=== PATIENT | female | born 1965 | race Caucasian/White ===

== ENCOUNTER 2018-03-29 23:24 | Emergency (ER) | payer OTHER ==
[2018-03-29 23:43] VITALS: BP 126/74; TEMP 98; BMI 17.5
[2018-03-30] MEDS ORDERED: DEMEROL 50 MG/ML VIAL IM STA (00:01)
[2018-03-30] MEDS ORDERED: PHENERGAN 25 MG/ML VIAL 12.5 MG in SODIUM CHLORIDE 50 ML IV STA (00:01)
[2018-03-30] MEDS ORDERED: LEVAQUIN PO STA (00:05)
--- NOTE | 2018-03-30 00:05 | ED.PDOC ---
General ED Provider: Dr. HERIBERTO LAMAR Chief Complaint: Bite Stated Complaint: patient states she was bit by her and her mothers dog when they were fighting for food. She has sutained puncture wounds to the theresa. Also complains of left 5th metatarsal area. States that the dogs have had their shots. Time Seen by Physician: 23:45 Mode of Arrival: Walk-In Information Source: Patient Nursing and Triage Documentation Reviewed and Agree: Yes Reviewed sepsis parameters & appropriate labs ordered?: No System Inflammatory Response Syndrome: Not Applicable Sepsis Protocol: For patient's 13 years and over: Temp is 96.8 and below OR 101 and greater Pulse >90 BPM Resp >20/minute Acutely Altered Mental Status Are patient's symptoms suggestive of a new infection, such as: -Pneumonia -Skin, Soft Tissue -Endocarditis -UTI -Bone, Joint Infection -Implantable Device -Acute Abdominal Infection -Wound Infection -Meningitis -Blood Stream Catheter Infection -Unknown System Inflammatory Response Syndrome: Not Applicable Skin Complaint Exam - Laceration/Abrasion/Hand Complaint/Exam Location of Injury: Left, Hand (and theresa ) Mechanism of Injury: Sharp trauma (with dog teeth ) Onset/Duration: 2 hours ago Symptoms Are: Still present Initial Severity: Severe Current Severity: Moderate Aggravating: Movement (of hand) Associated Signs and Symptoms: Denies: Fever, Chills, Erythema, Numbness, Tingling Related History: Reports: Right hand dominant Hand Picture: 1 - area of pain 2 - multiple puncture wounds from dog bites. Differential Diagnoses: Puncture Wound Review of Systems - Review Of Systems Constitutional: Reports: No symptoms Musculoskeletal: Reports: Joint pain Skin: Reports: Lesions Neurological: Reports: Anxiety All Other Systems: Reviewed and Negative Past Medical History - Past Medical History Previously Healthy: Yes Endocrine: Reports: None Cardiovascular: Reports: None Respiratory: Reports: COPD Hematological: Reports: None Gastrointestinal: Reports: GERD Genitourinary: Reports: None Neuro/Psych: Reports: None Musculoskeletal: Reports: Arthritis Cancer: Reports: None Last Menstrual Period: UNKNOWN - Surgical History General Surgical History: Reports: Back Surgery (Two spinal surgeries, Right ankle surgery), Hernia Repair (Left ) - Family History Family History: Reports: Unknown - Social History Smoking Status: Current every day smoker, Heavy tobacco smoker Hx Substance Use: No Alcohol Screening: None - Immunizations Tetanus Shot up to Date: Yes Physical Exam - Physical Exam Appearance: Ill-appearing, Thin Ill-appearing: Mild Pain Distress: Severe Neck: Supple Respiratory: Airway patent Cardiovascular: RRR, Pulses normal, No rub, No murmur Musculoskeletal: Limited ROM Skin: Warm, Dry Neurological: Alert, Oriented Psychiatric: Anxious Interpretation - Radiology Interpretation Radiology Interpretation By: Radiologist Radiology Results: Negative Exam Interpreted: Other (hand x ray ) Critical Care Note - Critical Care Note Total Time (mins): 0 Course - Course Orders, Labs, Meds: Orders Category Date Time Status Diphth,Pertuss(Acell),Tet Vac [Boostrix] MEDS 03/30/18 00:22 Discontinued 0.5 ml IM .ONCE ONE Levofloxacin [Levaquin] MEDS 03/30/18 00:05 Discontinued 500 mg PO ONCE STA Meperidine HCl/Pf [Demerol 50 mg/ml Vial] MEDS 03/30/18 00:01 Discontinued 25 mg IM ONCE STA Promethazine HCl [Phenergan 25 mg/ml Vial] MEDS 03/30/18 00:07 Discontinued 25 mg IM ONCE STA HAND, LEFT 3 VIEWS Stat RADS 03/30/18 00:01 Completed Medications Discontinued Medications Generic Name Dose Route Start Last Admin Trade Name Freq PRN Reason Stop Dose Admin Diphtheria/Pertussis/Tetanus Vacc 0.5 ml 03/30/18 00:22 03/30/18 00:32 Boostrix IM 03/30/18 00:23 0.5 ml .ONCE ONE Administration Levofloxacin 500 mg 03/30/18 00:05 03/30/18 00:40 Levaquin PO 03/30/18 00:06 500 mg ONCE STA Administration Meperidine HCl 25 mg 03/30/18 00:01 03/30/18 00:41 Demerol 50 Mg/Ml Vial IM 03/30/18 00:02 25 mg ONCE STA Administration Promethazine HCl 25 mg 03/30/18 00:07 03/30/18 00:37 Phenergan 25 Mg/Ml Vial IM 03/30/18 00:08 12.5 mg ONCE STA Administration Vital Signs: Temp Pulse Resp BP Pulse Ox 03/29/18 23:25 98 F 76 18 126/74 96 Departure - Departure Time of Disposition: 01:00 Disposition: HOME SELF-CARE Discharge Problem: Dog bite of forearm without complication Qualifiers: Encounter type: initial encounter Laterality: left Qualified Code(s): S51.852A - Open bite of left forearm, initial encounter Instructions: Diphtheria/Acellular Pertussis/Tetanus Vaccine (By injection), Animal Bite (ED) Condition: Stable Pt referred to PMD for follow-up: Yes IPMP verified?: Yes Additional Instructions: Take medications as prescribed Follow up with PCP in 3 days Keep wounds clean dry and dressed. Prescriptions: Ibuprofen [Motrin] 600 mg PO Q6H PRN #20 tablet PRN Reason: Analgesia Levofloxacin [Levaquin] 500 mg PO ONCE #7 tablet Allergies/Adverse Reactions: Allergies codeine Allergy (Unverified 04/19/16 16:14) hydrocodone Allergy (Unverified 04/19/16 16:14) morphine Adverse Reaction (Verified 03/29/18 23:30) Swelling/HIVES Penicillins Adverse Reaction (Verified 04/14/15 13:34) Sulfa (Sulfonamide Antibiotics) Adverse Reaction (Verified 04/14/15 13:34) steroids Adverse Reaction (Uncoded 04/14/15 19:08) pt states allergic to ANY STEROID!!!! Home Medications: Ambulatory Orders Ibuprofen [Motrin] 600 mg PO Q6H PRN #20 tablet 03/30/18 Levofloxacin [Levaquin] 500 mg PO ONCE #7 tablet 03/30/18 Disposition Discussed With: Patient, Family
[2018-03-30] MEDS ORDERED: PHENERGAN 25 MG/ML VIAL IM STA (00:07)
[2018-03-30] MEDS ORDERED: BOOSTRIX IM ONE (00:22)
--- NOTE | 2018-03-30 00:36 | DI ---
EXAM: Three views left hand. HISTORY: Pain. FINDINGS: The bones are intact with no evidence of fracture. The joint spaces are maintained. There is gas and soft tissue swelling in the soft tissues of the distal left forearm and wrist. Impression: Gas and soft tissue swelling in the soft tissues of the distal left forearm and wrist. T he differential diagnosis includes trauma and infection. No evidence of fracture.
== END 2018-03-30 01:20 | disposition home or self-care (01) ==
LOC: ED 23:24
DX: S51.852A Open bite of left forearm, initial encounter (principal); S69.92XA Unspecified injury of left wrist, hand and finger(s), initial encounter; W54.0XXA Bitten by dog, initial encounter; F17.210 Nicotine dependence, cigarettes, uncomplicated
CPT/HCPCS: 90471; 90715; 96372; 99283

== ENCOUNTER 2018-04-10 10:47 | Outpatient (CLI) | payer OTHER ==
--- NOTE | 2018-04-10 15:51 | CT ---
Exam: CT chest without intravenous contrast. Comparison: 04/19/2016. Reason for exam: Abnormal weight loss. FINDINGS: Emphysematous disease is seen throughout the lung parenchyma with an apical predominance. 2 mm nodule in the right upper lobe on axial image number 24. Parenchymal thickening/inflammation in the right upper lobe measuring approximately 3.6 mm. Multiple calcified and noncalcified micronodules are seen in the right lung base. There is a 3 mm nodule in the left lower lobe on axial image number 61. The aorta is normal in course and caliber measuring approximately 3 cm at the level of the arch. The heart is not enlarged. No pneumothorax, pleural effusion, or focal consolidation. No suspicious appearing osteoblastic or osteolytic lesions. 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 Impression: 1. No acute imaging findings are seen within the thorax. 2. Micronodules both calcified and noncalcified are seen throughout the lung parenchyma. No signific ant interval change from the previous exam. If clinical concern exists, 1-year follow-up may be perf ormed to document stability
== END 2018-04-10 10:48 | disposition home or self-care (01) ==
LOC: RAD 10:47
PROVIDERS: ATTEND General Practice
DX: R63.4 Abnormal weight loss (principal); R05 Cough; Z79.899 Other long term (current) drug therapy
CPT/HCPCS: 36415; 80053; 81001; 84443; 85025

== ENCOUNTER 2018-04-19 15:37 | Outpatient (CLI) | END 2018-04-19 15:38 | disposition home or self-care (01) | LOC: FCC-LAB 15:37 | PROVIDERS: ATTEND General Practice | DX: R63.4 Abnormal weight loss (principal); R74.8 Abnormal levels of other serum enzymes; Z79.899 Other long term (current) drug therapy | CPT/HCPCS: 36415; 80306; 82977 ==

== ENCOUNTER 2018-04-26 15:44 | Outpatient (CLI) | payer OTHER | END 2018-04-26 15:45 | disposition home or self-care (01) | LOC: FCC-LAB 15:44 | PROVIDERS: ATTEND General Practice | DX: R74.8 Abnormal levels of other serum enzymes (principal); R63.4 Abnormal weight loss | CPT/HCPCS: 36415; 84075; 84080; 87389 ==

== ENCOUNTER 2019-01-02 13:00 | Outpatient (RCR) ==
--- NOTE | 2019-01-02 11:30 | RS.OPPTEV2 ---
Date of Note: 01/01/19 Visit #: 1 Number of visits approved by Insurance: n/a Date of Evaluation: 01/01/19 Payer Source: MEDICARE Surgery Performed?: No Treatment Diagnosis: muscle weakness History of Condition/Mechanism of Injury:: pt states she has been suffering from malnutrition and has gotten weak. Reports she has had difficulty with left lower quadrant pain. Prior Level of Function.....Patient was independent with: ADL's, Self Care, Caregiving, Ambulation/Mobility, Community Integration/Access Functional Limitations: Standing, Ambulation, Community Access/Integration Current Subjective/complaints:: pt states that she is here to use weight machines. States she knows that is what she needs, she needs to get stronger. Treatment Side (optional): N/A *Precautions: n/a Medical History Medical History: COPD, Arthritis Surgical History: Cervical Spine, Lumbar Spine, Hysterectomy Surgical History Comments:: Right ankle surgery 04/02/14, reports no metal in the ankle Smoking Status: Current every day smoker Hx Home Medications: prilosec, megestrol Patient's Goals: get stonger, build muscle Functional Outcome Measure LE Functional Scale: 58 - G Codes & Severity Modifier G Codes & Modifier: n/a Source of G Code score: n/a Observation - Observation Posture: Forward Head, Rounded Shoulders, Increased Thoracic Kyphosis Handedness: Right Gait - Gait Pattern Gait Comments: pt amb with increased lat sway, pt also with decreased heel strike. General Range of Motion: BUE WFL's. BLE WFL's Muscle Strength: BUE shld flex 4/5, elbow flex/ext 4/5, decreased life skills educator BUE. BLE 4+/5 Palpation Palpation Findings: None/Normal Sensation - Sensation Right Upper Extremity: Intact/Normal Left Upper Extremity: Intact/Normal Right Lower Extremity: Intact/Normal Left Lower Extremity: Intact/Normal Balance - Sitting Balance Static Sitting Balance: Normal Dynamic Sitting Balance: Normal - Standing Balance Static Standing Balance: Good Dynamic Standing Balance: Good Interventions - Exercise/Activities/Manual Therapy Exercises/Activities: pt performed PF with green theraband, isometric hip add, resisted hip abd and hip flex with green theraband. Manual Therapy: NA HOME EXERCISE PROGRAM: pt given written HEP including isometric hip add as well as PF, resisted hip abd and resisted hip flex with green theraband. - Charges Timed Code Treatment Minutes: 53 Total Treatment Time: 59 Procedures billed for this date of service:: eval low, ex EVALUATION COMPLEXITY LEVEL EVALUATION COMPLEXITY LEVEL: HISTORY: Low, EXAM OF BODY SYSTEMS: Low, CLINICAL PRESENTATION: Low, CLINICAL DECISION MAKING: Low Assessment Assessment: pt presents with generalized decreased strength and endurance. pt with increased hamstring tightness BLE. pt with somewhat limited dyn stand balance. Patient Education: Home Exercise Program, Education of Plan of Care Rehab Potential: Good Short Term Goals Goal #1: Improve B LE strength 4-/5 Goal to be met by: 01/16/19 Goal #2: Improve hamstring flexibility R equal to L Goal to be met by: 01/16/19 Goal #3: pt independent with initial HEP Goal to be met by: 01/16/19 Alf Goals Goal #1: pt report ability to perform normal household activites Goal to be met by: 01/30/19 Goal #2: pt amb without LOB with improved sequencing Goal to be met by: 01/30/19 Plan - Treatment to be Provided Procedures: Therapeutic Exercises, Therapeutic Activity, Gait Training, Neuromuscular Rehab, Manual Therapy, Patient Education Modalities: No Modalities Other:: *NO HEAT* per patient request - Treatment Plan Frequency: 2-3x a week Duration: 4 weeks Dates of Sleep Scientist Goals: 01/30/19 Expiration date of current Insurance Approval:: n/a - Treatment Code (1) Muscle weakness Code(s): M62.81 - MUSCLE WEAKNESS (GENERALIZED) (2) Muscle tightness Code(s): M62.89 - OTHER SPECIFIED DISORDERS OF MUSCLE (3) Gait difficulty Code(s): R26.9 - UNSPECIFIED ABNORMALITIES OF GAIT AND MOBILITY
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
== END 2019-01-03 23:59 ==
PROVIDERS: ATTEND Family Medicine
DX: R10.32 Left lower quadrant pain (principal)